=== PATIENT | male | born 1975 | race Caucasian/White ===

== ENCOUNTER 2017-11-05 06:19 | Emergency (ER) | payer OTHER ==
[~2017-11-05] VITALS: Ht 175.3 cm; Wt 87.1 kg
[~2017-11-05 06:19] MED LIST: KEFLEX500 MG PO; MOTRIN800 MG PO
[2017-11-05 06:23] VITALS: BP 153/108
--- NOTE | 2017-11-05 06:56 | ED UPPER/LOWER EXTREMITY COMPL ---
History of Present Illness General Chief Complaint: General Adult Stated Complaint: ACCIDENTAL HYDRAULIC INJECTION,WORK RELATED INJURY Source: patient Exam Limitations: no limitations Vital Signs & Intake/Output Vital Signs & Intake/Output Vital Signs Date Time Temp Pulse Resp B/P B/P Pulse O2 O2 Flow FiO2 Mean Ox Delivery Rate 11/05 626 99 Room Air 11/05 622 99.6 76 18 153/108 99 Room Air Allergies Coded Allergies: NO KNOWN ALLERGIES (09/09/14) Reconcile Medications Cephalexin (Keflex) 500 MG CAPSULE 1 TAB PO 4 TIMES/DAY INFECTION Ibuprofen (Motrin) 800 MG TAB 1 TAB PO TID PRN PAIN Triage Note: PT FROM HOME C/O OF REMOVING A HYDRAULIC FITTING ON A [employer], FITTING BLEW OUT UNDER HIGH PRESSURE OIL AND HIT PTS LEFT FOREARM. PT NOTED TO HAVE BLEEDING CONTROLLED PRIOR TO ARRIVAL, SMALL LAC NOTED TO PTS ARM. PTS BP ELEVATED. Triage Nurses Notes Reviewed? yes Onset: Abrupt Duration: hour(s): Timing: recent history Severity: mild Pain/Injury Location: Left: Forearm. Method of Injury: direct blow Modifying Factors: Improves With: rest. Associated Symptoms: mild swelling HPI: 42 yo gentleman presents with left forearm discomfort. He states, "About an hour ago, I took off a fitting, and a blast of hydralic oil pushed my arm back... I got nervous because I don't want the oil in my body." He notes a small abrasion on the left forearm, no significant tenderness or swelling. "I know I didn't break it... I can move it just fine." There is no significant skin breakdown. The oil was at room temperature. He is otherwise well and without injury. Past History Travel History Traveled to [place] past 21 day No Medical History Any Pertinent Medical History? 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 No Review of Systems Review of Systems Constitutional: Reports: no symptoms. EENTM: Reports: no symptoms. Respiratory: Reports: no symptoms. Cardiovascular: Reports: no symptoms. Gastrointestinal/Abdominal: Reports: no symptoms. Genitourinary: Reports: no symptoms. Musculoskeletal: Reports: no symptoms. Skin: Reports: no symptoms. Neurological/Psychological: Reports: no symptoms. Hematologic/Endocrine: Reports: no symptoms. Immunological: Reports: no symptoms. All Other Systems: Reviewed and Negative Physical Exam Physical Exam General Appearance: well developed/nourished, mild distress Head: atraumatic Eyes: Bilateral: normal appearance. Ears, Nose, Throat: normal pharynx, normal ENT inspection Neck: normal inspection Cardiovascular/Respiratory: no respiratory distress Back: normal inspection Hand Left: left forearm with 1cm mild superficial abrasion. no significant tenderness to palpation. ROM is normal. no sign of infection. no significant swelling. Progress Differential Diagnosis: chemical/oil exposure vs contusion vs abrasion vs other. Plan of Care: left forearm washed extensively. no sign of infection or serious injury bacitracin applied to small abrasion pt safe for discharge and will return if his symptoms worsen. Departure Departure Disposition: HOME OR SELF CARE Condition: Stable Clinical Impression Primary Impression: Contusion Secondary Impressions: Abrasion Referrals: Shaw Skaggs MD (PCP/Family) Additional Instructions: return to the ED if you develop swelling, fever, increased pain. Departure Forms: Customer Survey General Discharge Information
== END 2017-11-05 07:02 ==
LOC: ERH 06:19
DX: S50.12XA Contusion of left forearm, initial encounter (principal); S50.812A Abrasion of left forearm, initial encounter; X58.XXXA Exposure to other specified factors, initial encounter; Y92.9 Unspecified place or not applicable; Y93.9 Activity, unspecified; F17.210 Nicotine dependence, cigarettes, uncomplicated; F10.10 Alcohol abuse, uncomplicated